=== PATIENT | male | born 1935 | race Caucasian/White ===

== ENCOUNTER → 2023-04-17 12:36 | Outpatient (CLI) | payer MEDICARE, BC, SELFPAY ==
[2023-04-17 13:47] LABS: Add Manual Diff / Slide Review NO; Basophils Absolute Auto 100 /uL (0-100); Basophils Percent Auto 1.1 % (0-2); Eosinophils Absolute Auto 200 /uL (0-450); Eosinophils Percent Auto 2.9 % (2-4); Hematocrit 41.1 % (41-53); Lymphocytes Absolute Auto 1900 /uL (1100-4500); Lymphocytes Percent Auto 24.6 % (25-40); Mean Corpuscular HGB Conc 34.1 % (30-36); Mean Corpuscular Hemoglobin 31.3 PG (26-34); Mean Corpuscular Volume 91.6 fL (80-100); Monocytes Absolute Auto 900 /uL (0-900); Monocytes Percent Auto 10.8 % (3-14); Neutrophils Absolute Auto 4800 /uL (1500-7000); Neutrophils Percent Auto 60.6 % (50-75); Platelet Count 247 X10^3/uL (150-400); Red Blood Cell Count 4.48 X10^6/uL (4.5-5.9); Red Cell Distribution Width 13.1 % (11.6-14.8); White Blood Cell Count 7.9 X10^3/uL (4.5-11.0)
[2023-04-17 14:08] LABS: Alanine Aminotransferase 16 IU/L (<50); Albumin 4.2 g/dL (3.5-5.0); Albumin Globulin Ratio 1.3 (1.0-2.8); Alkaline Phosphatase 45 U/L (38-126); Aspartate Aminotransferase 24 IU/L (17-59); BUN Creatinine Ratio 20.4 (6-22); Bilirubin Total 0.8 mg/dL (0.2-1.3); Blood Urea Nitrogen 23 mg/dL (9-20); C-Reactive Protein Quant 0.7 mg/dL (<1.0); Calcium 9.9 mg/dL (8.4-10.2); Carbon Dioxide 31 mmol/L (22-32); Chloride 99 mmol/L (98-107); Estimated Glomerular Filt Rate > 60 mL/min (>60); Globulin 3.2 g/dL (1.7-4.1); Glucose 86 mg/dL (80-110); HEMOLYSIS < 15 (0-50); Potassium 4.3 mmol/L (3.4-5.1); Sodium 137 mmol/L (137-145); Total Protein 7.4 g/dL (6.3-8.2)
[2023-04-17 14:28] LABS: Erythrocyte Sedimentation Rate 16 MM/HR (0-15)
[2023-04-17 14:37] LABS: TSH w/ Reflex to FT4 1.84 uIU/mL (0.47-4.68)
== END ==
PROVIDERS: PCP Family Medicine; Referring Provider Family Medicine; Visit Provider Family Medicine
DX: Z13.9 Encounter for screening, unspecified (principal)
CPT/HCPCS: 36415; 80053; 82306; 84443; 85025; 85651; 86140

== ENCOUNTER 2023-05-01 16:48 | Emergency (ER) | payer MEDICARE, BC, SELFPAY ==
[2023-05-01 16:58] VITALS: BP 165/107; PULSE 59; RESP 18; TEMP 36.7; O2SAT 97; BMI 24.7
--- NOTE | 2023-05-01 17:22 | ED_ITS ---
HPI - Weakness <Odilia Cabral PA-C - Last Filed: 05/03/23 16:14> General Chief complaint: Weakness Stated complaint: weakness/dr ref Time Seen by Provider: 05/01/23 17:07 Source: patient Mode of arrival: Wheelchair History of Present Illness HPI Narrative: 87-year-old male presents to the ED with 2 weeks of generalized weakness, lightheadedness when going from sitting to standing. Patient saw his PCP 2 weeks ago and again last week. Labs were normal. Today, patient called his PCP since he felt his weakness was worse and he did not feel like walking. PCP recommended he go to the ED for further evaluation. Patient denies fever, chills, rhinorrhea, cough, chest pain, shortness of breath, nausea, vomiting, abdominal pain, dysuria, syncope. Patient has a pacemaker. Related Data Previous Rx's Medication Instructions Recorded ferrous gluconate 240 mg (27 mg 240 mg PO .every other day #60 tabs 04/20/23 iron) tablet (Ferate) bupropion HCl 150 mg 24 hr tablet, 150 mg PO QAM #60 tabs 04/24/23 extended release (Wellbutrin XL) Allergies Allergy/AdvReac Type Severity Reaction Status Date / Time No Known Drug Allergies Allergy Unverified 04/24/23 11:02 Review of Systems <Odilia Cabral PA-C - Last Filed: 05/03/23 16:14> Constitutional Constitutional: Denies chills, Denies fatigue, Denies fever(s), Denies frequent falls, Denies lethargy and Reports weakness Eyes Eyes: Denies change in vision, Denies eye discharge, Denies irritation and Denies loss of vision ENT Ears, Nose, Mouth, and Throat: Denies change in voice, Denies dizziness, Denies neck pain, Denies sore throat and Denies throat swelling Cardiovascular Cardiovascular: Denies chest pain, Denies irregular heart rhythm, Reports lightheadedness, Denies palpitations, Denies dyspnea, Denies dyspnea on exertion and Denies orthopnea Respiratory Respiratory: Denies cough, Denies dyspnea, Denies dyspnea on exertion and Denies wheezing Gastrointestinal Gastrointestinal: Denies abdominal pain, Denies change in bowel habits, Denies diarrhea, Denies nausea and Denies vomiting Musculoskeletal Musculoskeletal: Denies neck pain and Denies numbness Integumentary/Breasts Skin/Breast: Denies pruritus, Denies erythema, Denies rash and Denies wounds Neurologic Neurologic: Denies behavioral changes, Denies confusion, Denies dizziness, Denies frequent falls, Denies loss of vision, Denies numbness and Reports weakness Psychiatric Psychiatric: Denies anxiety, Denies behavioral changes, Denies confusion, Denies depression, Denies homicidal ideation and Denies suicidal ideation Endocrine Endocrine: Denies fatigue, Denies flushing and Denies palpitations Hematologic/Lymphatic Hematologic/Lymphatic: Denies easy bruising Allergic/Immunologic Allergic/Immunologic: Denies urticaria, Denies throat swelling and Denies wheezing Patient History <Odilia Cabral PA-C - Last Filed: 05/03/23 16:14> Medical History Weakness Social History Smoking Status: Former smoker Smoking Status: Former smoker alcohol intake frequency: a few times a week Alcohol type: wine Exam <Odilia Cabral PA-C - Last Filed: 05/03/23 16:14> Narrative Exam Narrative: Const General:?cooperative, healthy appearing and comfortable [facility] Head:?normal to inspection Ears:?hearing grossly normal bilaterally Nose:?external nose normal Face and sinus:?normal facial exam and sinuses nontender Mouth:?oral mucosae normal Throat:?posterior oropharynx normal Eyes General:?appearance normal, both eyes and all related structures Neck Neck:?normal visual inspection and no lymphadenopathy noted Resp Effort & Inspection:?normal respiratory effort Auscultation:?clear to auscultation bilaterally Cardio Rate:?regular rate Rhythm:?regular rhythm Neuro General:?patient alert, patient awake and patient oriented x3 Initial Vital Signs Initial Vital Signs: Vital Signs Temperature 98.0 F 05/01/23 16:58 Pulse Rate 59 L 05/01/23 16:58 Respiratory Rate 18 05/01/23 16:58 Blood Pressure 165/107 H 05/01/23 16:58 Pulse Oximetry 97 05/01/23 16:58 Oxygen Delivery Method Room Air 05/01/23 16:58 <Sabina Ramos MD - Last Filed: 05/03/23 16:58> Initial Vital Signs Initial Vital Signs: Vital Signs Temperature 98.0 F 05/01/23 16:58 Pulse Rate 59 L 05/01/23 16:58 Respiratory Rate 18 05/01/23 16:58 Blood Pressure 165/107 H 05/01/23 16:58 Pulse Oximetry 97 05/01/23 16:58 Oxygen Delivery Method Room Air 05/01/23 16:58 Course <Odilia Cabral PA-C - Last Filed: 05/03/23 16:14> Vital Signs Vital signs: Vital Signs - 8 hr 05/01/23 16:58 Temperature 98.0 F Pulse Rate 59 L Respiratory Rate 18 Blood Pressure 165/107 H Pulse Oximetry 97 Oxygen Delivery Method Room Air <Sabina Ramos MD - Last Filed: 05/03/23 16:58> Vital Signs Vital signs: Vital Signs - 8 hr 05/01/23 16:58 Temperature 98.0 F Pulse Rate 59 L Respiratory Rate 18 Blood Pressure 165/107 H Pulse Oximetry 97 Oxygen Delivery Method Room Air MDM - Weakness <Odilia Cabral PA-C - Last Filed: 05/03/23 16:14> Lab Data 05/01/23 18:10 05/01/23 18:10 Labs: Lab Results 05/01/23 05/01/23 Range/Units 18:05 18:10 WBC 8.1 (4.5-11.0) X10^3/uL RBC 4.54 (4.5-5.9) X10^6/uL Hgb 14.1 (13.5-17.5) g/dL Hct 41.0 (41-53) % MCV 90.4 (80-100) fL MCH 31.1 (26-34) PG MCHC 34.4 (30-36) % RDW 13.8 (11.6-14.8) % Plt Count 230 (150-400) X10^3/uL Neut % (Auto) 55.9 (50-75) % Lymph % (Auto) 26.7 (25-40) % [place] % (Auto) 13.3 (3-14) % Eos % (Auto) 2.7 (2-4) % Baso % (Auto) 1.4 (0-2) % Neut # (Auto) 4500 (7145-3870) /uL Lymph # (Auto) 2200 (0252-6343) /uL [place] # (Auto) 1100 H (0-900) /uL Eos # (Auto) 200 (0-450) /uL Baso # (Auto) 100 (0-100) /uL Sodium 138 (137-145) mmol/L Potassium 4.1 (3.4-5.1) mmol/L Chloride 102 (98-107) mmol/L Carbon Dioxide 28 (22-32) mmol/L BUN 26 H (9-20) mg/dL Creatinine 1.22 (0.66-1.25) mg/dL Estimated GFR 57 L (>60) mL/min BUN/Creatinine Ratio 21.3 (6-22) Glucose 103 (80-110) mg/dL Calcium 9.9 (8.4-10.2) mg/dL Total Bilirubin 0.7 (0.2-1.3) mg/dL AST 21 (17-59) IU/L ALT 19 (<50) IU/L Alkaline Phosphatase 54 (38-126) U/L Total Creatine Kinase 43 L (55-170) U/L Troponin I < 0.012 (0.01-0.034) ng/mL Total Protein 7.4 (6.3-8.2) g/dL Albumin 4.2 (3.5-5.0) g/dL Globulin 3.2 (1.7-4.1) g/dL Albumin/Globulin Ratio 1.3 (1.0-2.8) Lipase 69 (23-300) U/L Urine RBC 0-1/hpf (0-5/HPF) Urine WBC 0-1/hpf (0-5/HPF) Ur Squamous Epith Cells None seen (0-5/HPF) Urine Bacteria Occasional (0-1) (None) Vol Urine Centrifuged 10ml (spun) Urine Dip Bedside Urine Glucose Negative Bedside Urine Bilirubin - Negative Bedside Urine Ketone - Negative Urine Specific [place] 1.015 Bedside Urine Occult Blood + Bedside Urine pH 7.0 Bedside Urine Protein - Negative Bedside Urine Urobilinogen - Negative Bedside Urine Nitrite - Negative Bedside Urine Leukocytes - Negative Esterase MDM Narrative Medical decision making narrative: 87-year-old male presents to the ED with 2 weeks of generalized weakness, lightheadedness when going from sitting to standing. Concern for UTI versus dehydration versus electrolyte derangements versus ACS versus other. Will obtain EKG, chest x-ray, labs, troponin, UA. Will reassess. Workup largely unremarkable. Labs within normal limits. Troponin within normal limits. UA without UTI. Chest x-ray without acute findings. EKG without acute ST-T changes. Discussed findings with patient. Recommend good hydration. Recommend follow-up with PCP as soon as possible. ED return precautions discussed with patient. Patient verbalized understanding. Medical records reviewed: Yes <Sabina Ramos MD - Last Filed: 05/03/23 16:58> Lab Data Labs: Lab Results 05/01/23 05/01/23 Range/Units 18:05 18:10 WBC 8.1 (4.5-11.0) X10^3/uL RBC 4.54 (4.5-5.9) X10^6/uL Hgb 14.1 (13.5-17.5) g/dL Hct 41.0 (41-53) % MCV 90.4 (80-100) fL MCH 31.1 (26-34) PG MCHC 34.4 (30-36) % RDW 13.8 (11.6-14.8) % Plt Count 230 (150-400) X10^3/uL Neut % (Auto) 55.9 (50-75) % Lymph % (Auto) 26.7 (25-40) % [place] % (Auto) 13.3 (3-14) % Eos % (Auto) 2.7 (2-4) % Baso % (Auto) 1.4 (0-2) % Neut # (Auto) 4500 (7918-3628) /uL Lymph # (Auto) 2200 (3242-9698) /uL [place] # (Auto) 1100 H (0-900) /uL Eos # (Auto) 200 (0-450) /uL Baso # (Auto) 100 (0-100) /uL Sodium 138 (137-145) mmol/L Potassium 4.1 (3.4-5.1) mmol/L Chloride 102 (98-107) mmol/L Carbon Dioxide 28 (22-32) mmol/L BUN 26 H (9-20) mg/dL Creatinine 1.22 (0.66-1.25) mg/dL Estimated GFR 57 L (>60) mL/min BUN/Creatinine Ratio 21.3 (6-22) Glucose 103 (80-110) mg/dL Calcium 9.9 (8.4-10.2) mg/dL Total Bilirubin 0.7 (0.2-1.3) mg/dL AST 21 (17-59) IU/L ALT 19 (<50) IU/L Alkaline Phosphatase 54 (38-126) U/L Total Creatine Kinase 43 L (55-170) U/L Troponin I < 0.012 (0.01-0.034) ng/mL Total Protein 7.4 (6.3-8.2) g/dL Albumin 4.2 (3.5-5.0) g/dL Globulin 3.2 (1.7-4.1) g/dL Albumin/Globulin Ratio 1.3 (1.0-2.8) Lipase 69 (23-300) U/L Urine RBC 0-1/hpf (0-5/HPF) Urine WBC 0-1/hpf (0-5/HPF) Ur Squamous Epith Cells None seen (0-5/HPF) Urine Bacteria Occasional (0-1) (None) Vol Urine Centrifuged 10ml (spun) Urine Dip Bedside Urine Glucose Negative Bedside Urine Bilirubin - Negative Bedside Urine Ketone - Negative Urine Specific [place] 1.015 Bedside Urine Occult Blood + Bedside Urine pH 7.0 Bedside Urine Protein - Negative Bedside Urine Urobilinogen - Negative Bedside Urine Nitrite - Negative Bedside Urine Leukocytes - Negative Esterase Discharge Plan Departure Patient Disposition: Home Clinical Impression: Weakness Instructions: DI for Fatigue Activity Restrictions/Additional Instructions: You were evaluated in the ED today for some fatigue, lightheadedness when you go from sitting to standing. Your workup in the ED today was normal. It is unclear the reason for your fatigue. Please continue to follow-up with your PCP as soon as possible. Please continue to stay well hydrated. Return to the ED if you have worsening symptoms, chest pain, shortness of breath. Prescriptions: No Action bupropion HCl [Wellbutrin XL] 150 mg tablet extended release 24 hr 150 mg PO QAM Qty: 60 0RF ferrous gluconate [Ferate] 240 mg (27 mg iron) tablet 240 mg PO .every other day Qty: 60 2RF Referrals: Fatimah Feldman MD [Primary Care Provider] - Stand Alone Forms: Patient Portal/API ED Sign-out <Sabina Ramos MD - Last Filed: 05/03/23 16:58> Cosign ED Attending Cosignature Attestation: I do not see this patient.
--- NOTE | 2023-05-01 17:57 | DI.RAD.S_ITS ---
PROCEDURE: XR CHEST 2V INDICATIONS: dizziness TECHNIQUE: 2 views of the chest were acquired. COMPARISON: None. FINDINGS: Surgical changes and devices: Dual lead left-sided transvenous pacemaker. Lungs and pleura: Lungs are clear. No pleural effusions or pneumothorax. Mediastinum: Mediastinal contours are normal. Heart size is normal. Bones and chest wall: No suspicious bony abnormalities. Soft tissues appear unremarkable. IMPRESSION: No acute cardiopulmonary abnormality is seen. Dictated by: Cris Lipscomb M.D. on 05/01/2023 at 19:19 Approved by: Cris Lipscomb M.D. on 05/01/2023 at 19:19
--- NOTE | 2023-05-01 18:00 | PC.NURSE ---
Pt states he experienced an increase in his dizziness when repositioning from sitting down. Pt describes it as standing up and feeling dizzy for a moment, and then feeling fine. He denies having any pain including chest pain, shortness of breath, or feeling like he is going to pass out. He also denies pain with urination, urinary frequency, or burning sensation.
[2023-05-01 18:18] LABS: Add Manual Diff / Slide Review NO; Basophils Absolute Auto 100 /uL (0-100); Basophils Percent Auto 1.4 % (0-2); Eosinophils Absolute Auto 200 /uL (0-450); Eosinophils Percent Auto 2.7 % (2-4); Hemoglobin 14.1 g/dL (13.5-17.5); Lymphocytes Absolute Auto 2200 /uL (1100-4500); Lymphocytes Percent Auto 26.7 % (25-40); Mean Corpuscular HGB Conc 34.4 % (30-36); Mean Corpuscular Hemoglobin 31.1 PG (26-34); Mean Corpuscular Volume 90.4 fL (80-100); Monocytes Absolute Auto 1100 /uL (0-900); Monocytes Percent Auto 13.3 % (3-14); Neutrophils Absolute Auto 4500 /uL (1500-7000); Neutrophils Percent Auto 55.9 % (50-75); Platelet Count 230 X10^3/uL (150-400); Red Blood Cell Count 4.54 X10^6/uL (4.5-5.9); Red Cell Distribution Width 13.8 % (11.6-14.8); White Blood Cell Count 8.1 X10^3/uL (4.5-11.0)
[2023-05-01 18:19] LABS: Urine Volume 10mL (spun)
[2023-05-01 18:26] LABS: Alanine Aminotransferase 19 IU/L (<50); Albumin 4.2 g/dL (3.5-5.0); Albumin Globulin Ratio 1.3 (1.0-2.8); Alkaline Phosphatase 54 U/L (38-126); Aspartate Aminotransferase 21 IU/L (17-59); BUN Creatinine Ratio 21.3 (6-22); Bilirubin Total 0.7 mg/dL (0.2-1.3); Blood Urea Nitrogen 26 mg/dL (9-20); Calcium 9.9 mg/dL (8.4-10.2); Carbon Dioxide 28 mmol/L (22-32); Chloride 102 mmol/L (98-107); Creatine Kinase 43 U/L (55-170); Estimated Glomerular Filt Rate 57 mL/min (>60); Globulin 3.2 g/dL (1.7-4.1); Glucose 103 mg/dL (80-110); HEMOLYSIS < 15 (0-50); Lipase 69 U/L (23-300); Potassium 4.1 mmol/L (3.4-5.1); Sodium 138 mmol/L (137-145); Total Protein 7.4 g/dL (6.3-8.2)
[2023-05-01 18:34] LABS: Bacteria Urine Occasional (0-1); RBC Urine 0-1/HPF (0-5/HPF); Squamous Epithelial Cell Urine None Seen (0-5/HPF); WBC Urine 0-1/HPF (0-5/HPF)
[2023-05-01 18:37] LABS: Troponin I < 0.012 ng/mL (0.01-0.034)
[2023-05-01 19:06] VITALS: BP 187/109; PULSE 59; RESP 18; TEMP 36.7; O2SAT 96
== END 2023-05-01 19:15 | disposition home or self-care (01) ==
PROVIDERS: Emergency Provider Student in an Organized Health Care Education/Training Program; PCP Family Medicine
DX: R53.1 Weakness (principal); R42 Dizziness and giddiness
CPT/HCPCS: 36415; 71046; 80053; 81003; 81015; 82550; 83690; 84484; 85025; 93005; 99282; 99284

== ENCOUNTER → 2023-11-23 13:54 | Outpatient (CLI) | payer MEDICARE, BC, SELFPAY ==
[2023-11-23 15:18] LABS: Influenza A - CEPHEID Flu A NEGATIVE (NEGATIVE); Influenza B - CEPHEID Flu B NEGATIVE (NEGATIVE); Respiratory Syncytial Virus Negative (Negative)
[2023-11-23 15:32] LABS: COVID-19 CEPHEID 4-PLEX PCR Negative (Negative)
== END ==
PROVIDERS: PCP Family Medicine; Referring Provider Nurse Practitioner Family; Visit Provider Nurse Practitioner Family
DX: Z20.828 Contact with and (suspected) exposure to other viral communicable diseases (principal); R53.83 Other fatigue
CPT/HCPCS: 0241U; 87086

== ENCOUNTER → 2023-12-07 15:22 | Outpatient (CLI) | payer MEDICARE, BC, SELFPAY | PROVIDERS: PCP Family Medicine; Visit Provider Nurse Practitioner Family | DX: R53.83 Other fatigue (principal) | CPT/HCPCS: 87086 ==

== ENCOUNTER → 2024-03-17 16:10 | Outpatient (CLI) | payer MEDICARE, BC, SELFPAY ==
--- NOTE | 2024-03-17 16:13 | DI.ECHO.S_ITS ---
[place] [facility]---------+ [facility] : : [address] : [place] [address] : : [id number] : : Phone: [phone] Echocardiogram Report + + :Name: SALVADOR GARCIA Study Date: 03/17/2024 Height: 71 in : :[facility] ReadingLocation: Weight: 170 lb : : Gender: Male BSA: 2.0 m2 : :: 1935 Age: 88 yrs BP: 164/66 mmHg: :Reason For Study: PACEMAKER, FATIGUE : :Ordering Physician: JAXON, : :RUBI Performed By: Sagar Holbrook : :Referring: RUBI SOUZA : + + Interpretation Summary 1) Normal left ventricular size with mildly reduced systolic function (EF 45- 50%). 2) Normal right ventricular size and function. There is a pacemaker lead in the right ventricle. 3) There is mild mitral regurgitation. There is mild aortic regurgitation. 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 5) No prior Echo available for comparison. Procedure: A two-dimensional transthoracic echocardiogram with color flow and Doppler was performed. The study quality was technically good. There is no prior echocardiogram noted for this patient. The heart rate ranged between 57- 69 bpm during the study. Left Ventricle: The left ventricle is normal in size. Left ventricular wall thickness is mildly increased. There is no ventricular septal defect visualized. The ejection fraction is estimated to be 45-50%. Left ventricular systolic function is mildly reduced. There are no focal wall motion abnormalities. There is a moderate dyssynchronous contraction pattern due to the paced rhythm. Diastolic parameters suggest a relaxation abnormality of the left ventricle, consistent with probable normal filling pressures. Right Ventricle: The right ventricle is normal in size and function. There is a pacemaker lead in the right ventricle. Atria: The left atrium is mildly dilated. The right atrium is mildly dilated. There is a catheter/pacemaker lead seen in the right atrium. There is no Doppler evidence for an atrial septal defect. Mitral Valve: The mitral valve leaflets appear mildly thickened, but open well. There is mild mitral annular calcification. There is mild mitral regurgitation. Aortic Valve: The aortic valve is trileaflet. The aortic valve opens well. There is no aortic valve stenosis. There is mild aortic regurgitation. Tricuspid Valve: The tricuspid valve leaflets are thin and pliable. There is mild tricuspid regurgitation. The right ventricular systolic pressure is estimated to be at least 29 mmHg based on an estimated right atrial pressure of 3 mm Hg. Pulmonic Valve: The pulmonic valve is not well seen, but is grossly normal. There is a trace or physiologic amount of pulmonic regurgitation. Great Vessels: The aortic root is borderline dilated. The ascending aorta is mildly enlarged. The pulmonary artery is normal size. The IVC is of normal diameter and collapses greater than 50% with a sniff. This suggests a low right atrial pressure of 3 mm Hg. Pericardium/ Pleura There is no pericardial effusion. There is no pleural effusion. MMode/2D Measurements & Calculations LVIDd: 5.0 cm LVOT diam: 2.4 cm LVIDs: 4.1 cm Ao root diam: 3.9 cm FS: 18.3 % asc Aorta Diam: 4.5 cm EPSS: 0.98 cm IVSd: 1.2 cm LVPWd: 1.2 cm LV sow. diameter/BSA (cm/m^2): 2.6 LV sys. diameter/BSA (cm/m^2): 2.1 LA A2 area: 24.0 cm2 RA long axis: 5.0 cm LA A4 area: 19.5 cm2 RA area: 17.3 cm2 LA length (vol): 5.2 cm RA vol: 51.1 ml LA vol: 76.7 ml RA : 26.0 ml/m2 LA vol index: 39.0 ml/m2 IVC diam: 1.7 cm RVD1 (basal): 3.7 cm RVD2 (mid): 2.9 cm TAPSE: 2.0 cm Doppler Measurements & Calculations Ao V2 max: 164.0 cm/sec LVOT Max Edwin: 107.4 cm/sec Ao V2 mean: 117.0 cm/sec LV V1 max P.6 mmHg Ao max P.8 mmHg LV V1 VTI: 19.5 cm Ao mean P.2 mmHg LOUIS(I,D): 2.6 cm2 Ao V2 VTI: 34.7 cm LOUIS(V,D): 3.0 cm2 sev ratio: 0.56 LOUIS indexed to BSA (cm^2/m^2): 1.3 MV E max edwin: 44.5 cm/sec TR max edwin: 254.7 cm/sec MV A max edwin: 108.9 cm/sec TR max P.9 mmHg MV E/A: 0.41 PA V2 max: 54.7 cm/sec Med Peak E' Edwin: 6.6 cm/sec PA V2 mean: 35.0 cm/sec E/E' med: 6.7 PA mean P.56 mmHg Lat Peak E' Edwin: 5.5 cm/sec PA pr(Accel): 7.1 mmHg E/E' lat: 8.1 E/e' average: 7.4 MV dec time: 0.26 sec SV(LVOT): 89.3 ml Reading Physician:12:30 PM
== END ==
PROVIDERS: PCP Family Medicine; Referring Provider Internal Medicine Cardiovascular Disease; Visit Provider Internal Medicine Cardiovascular Disease
DX: I08.3 Combined rheumatic disorders of mitral, aortic and tricuspid valves (principal); I77.89 Other specified disorders of arteries and arterioles; R53.82 Chronic fatigue, unspecified; Z95.0 Presence of cardiac pacemaker
CPT/HCPCS: 93306

== ENCOUNTER → 2024-08-24 09:49 | Outpatient (CLI) | payer MEDICARE, BC, SELFPAY ==
[2024-08-24 11:06] LABS: Add Manual Diff / Slide Review NO; Basophils Absolute Auto 100 /uL (0-100); Basophils Percent Auto 1.6 % (0-2); Eosinophils Absolute Auto 200 /uL (0-450); Eosinophils Percent Auto 3.8 % (2-4); Hemoglobin 14.3 g/dL (13.5-17.5); Lymphocytes Absolute Auto 1500 /uL (1100-4500); Mean Corpuscular HGB Conc 34.1 % (30-36); Mean Corpuscular Hemoglobin 31.5 PG (26-34); Mean Corpuscular Volume 92.3 fL (80-100); Monocytes Absolute Auto 800 /uL (0-900); Neutrophils Absolute Auto 3600 /uL (1500-7000); Neutrophils Percent Auto 57.6 % (50-75); Platelet Count 191 X10^3/uL (150-400); Red Blood Cell Count 4.54 X10^6/uL (4.5-5.9); Red Cell Distribution Width 14.3 % (11.6-14.8); White Blood Cell Count 6.3 X10^3/uL (4.5-11.0)
[2024-08-24 11:30] LABS: BUN Creatinine Ratio 25.5 (6-22); Blood Urea Nitrogen 35 mg/dL (9-20); Calcium 9.4 mg/dL (8.4-10.2); Carbon Dioxide 27 mmol/L (22-32); Chloride 104 mmol/L (98-107); Estimated Glomerular Filt Rate 50 mL/min (>60); Glucose 100 mg/dL (70-99); HEMOLYSIS < 15 (0-50); Sodium 140 mmol/L (137-145)
== END ==
PROVIDERS: Internal Medicine Cardiovascular Disease; PCP Family Medicine; Referring Provider Family Medicine; Visit Provider Family Medicine
DX: R53.1 Weakness (principal)
CPT/HCPCS: 36415; 80048; 85025

== ENCOUNTER → 2025-02-28 12:22 | Outpatient (CLI) | payer MEDICARE, BC, SELFPAY ==
--- NOTE | 2025-02-28 12:24 | DI.ECHO.S_ITS ---
[place] +---------+ [facility] : : [address] : [place] [address] : : [id number] : : Phone: [phone] Echocardiogram Report + + :Name: SALVADOR GARCIA Study Date: 02/28/2025 Height: 71 in : :[facility] ReadingLocation: Weight: 170 lb : : Gender: Male BSA: 2.0 m2 : :: 1935 Age: 89 yrs BP: 143/93 mmHg: :Reason For Study: Ascneding aorta enlargement : :Ordering Physician: JAXON, : :RUBI Performed By: Stevie Coronel : :Referring: RUBI SOUZA : + + Interpretation Summary 1) Normal left ventricular size with mildly reduced systolic function (EF 45- 50%). 2) Normal right ventricular size and function. There is a pacemaker lead in the right ventricle. 3) There is mild aortic regurgitation. 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 5) Compared to the Echo done 03/17/2024, no significant change. Procedure: A two-dimensional transthoracic echocardiogram with color flow and Doppler was performed. The study quality was technically adequate. Comparison is made with the echocardiogram of 03/17/2024. The heart rate ranged between 62-78 bpm during the study. Left Ventricle: The left ventricle is normal in size. Left ventricular wall thickness is mildly increased. The ejection fraction is estimated to be 45- 50%. This is unchanged compared to the previous study. Grade I diastolic dysfunction with normal left atrial pressure. Right Ventricle: There is a pacemaker lead in the right ventricle. The right ventricle is normal size. The right ventricular systolic function is normal. Atria: The left atrium is mildly dilated. The right atrium is mildly dilated. There is no Doppler evidence for an interatrial shunt. Mitral Valve: The mitral valve leaflets appear to open well. There is no mitral valve stenosis. There is trace mitral regurgitation. Aortic Valve: The aortic valve is trileaflet. There is mild aortic valve sclerosis. The peak aortic velocity is 1.9 m/sec. The aortic valve mean gradient is 7 mmHg. sev ratio: 0.71. There is no aortic stenosis. There is mild aortic regurgitation. Tricuspid Valve: The tricuspid valve leaflets are thin and pliable. There is mild tricuspid regurgitation. The right ventricular systolic pressure is estimated to be at least 26 mmHg based on an estimated right atrial pressure of 3 mm Hg. Pulmonic Valve: The pulmonic valve is not well seen, but is grossly normal. There is mild pulmonic regurgitation. Great Vessels: The aortic root is normal size. 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 This is unchanged compared to the previous study. The aortic arch could not be visualized. The pulmonary artery is normal size. The IVC is of normal diameter and collapses greater than 50% with a sniff. This suggests a low right atrial pressure of 3 mm Hg. Pericardium/ Pleura There is no pericardial effusion. MMode/2D Measurements & Calculations LVIDd: 4.9 cm LVOT diam: 2.3 cm LVIDs: 3.4 cm Ao root diam: 3.9 cm FS: 30.5 % asc Aorta Diam: 4.5 cm EPSS: 0.78 cm IVSd: 1.5 cm LVPWd: 1.3 cm LV sow. diameter/BSA (cm/m^2): 2.5 LV sys. diameter/BSA (cm/m^2): 1.7 LA A2 area: 24.8 cm2 RA long axis: 5.3 cm LA A4 area: 18.5 cm2 RA area: 15.1 cm2 LA length (vol): 5.6 cm RA vol: 36.1 ml LA vol: 69.2 ml RA : 18.3 ml/m2 LA vol index: 35.2 ml/m2 IVC diam: 1.2 cm RVD1 (basal): 3.0 cm RVD2 (mid): 2.3 cm TAPSE: 1.4 cm Doppler Measurements & Calculations Ao V2 max: 191.1 cm/sec LVOT Max Edwin: 128.0 cm/sec Ao V2 mean: 121.6 cm/sec LV V1 max P.6 mmHg Ao max P.6 mmHg LV V1 VTI: 20.1 cm Ao mean P.0 mmHg LOUIS(I,D): 2.9 cm2 Ao V2 VTI: 28.5 cm LOUIS(V,D): 2.7 cm2 sev ratio: 0.71 LOUIS indexed to BSA (cm^2/m^2): 1.5 AI P1/2t: 776.9 msec AI dec slope: 169.0 cm/sec2 MV E max edwin: 52.0 cm/sec TR max edwin: 237.5 cm/sec MV A max edwin: 95.6 cm/sec TR max P.6 mmHg MV E/A: 0.54 PA V2 max: 86.3 cm/sec MV dec time: 0.28 sec PA V2 mean: 56.3 cm/sec PA mean P.5 mmHg PA pr(Accel): 45.6 mmHg SV(LVOT): 81.6 ml Qp/Qs (V,Ao): 1.0/6.0 Qp/Qs (V,LVOT): 1.0/1.3 Reading Physician:04:09 PM
== END ==
LOC: ECHO 12:23
PROVIDERS: PCP Family Medicine; Referring Provider Family Medicine; Visit Provider Internal Medicine Cardiovascular Disease
DX: I77.89 Other specified disorders of arteries and arterioles (principal); Z95.0 Presence of cardiac pacemaker; I08.2 Rheumatic disorders of both aortic and tricuspid valves
CPT/HCPCS: 93306